=== PATIENT | female | born 1945 | race Caucasian/White ===

== ENCOUNTER 2018-05-21 07:23 | Day surgery (SDC) | payer OTHER ==
[2018-05-17 12:06] VITALS: BMI 29.0
[2018-05-21] MEDS ORDERED: BUPIVACAINE HCL/PF 0.5% (5MG/ML) 10 ML VIAL ONE (08:08)
[2018-05-21] MEDS ORDERED: PHENYLEPHRINE HCL 10 MG/1 ML SINGLE DOSE VIAL ONE (09:21)
[2018-05-21] MEDS ORDERED: LIDOCAINE HCL 2% 100 MG/5 ML DISP.SYRIN ONE (09:21)
[2018-05-21] MEDS ORDERED: ROCURONIUM BROMIDE 50 MG/5 ML VIAL ONE (09:22)
[2018-05-21] MEDS ORDERED: SUCCINYLCHOLINE CHLORIDE 200 MG/10 ML VIAL ONE (09:22)
[2018-05-21] MEDS ORDERED: PROPOFOL 20 ML ONE (09:22)
[2018-05-21] MEDS ORDERED: MIDAZOLAM HCL 2 MG/2 ML SINGLE DOSE VIAL ONE (09:22)
[2018-05-21] MEDS ORDERED: ePHEDrine SULFATE 50 MG/1 ML AMPULE ONE ×2 (09:22→09:57)
[2018-05-21] MEDS ORDERED: morphine CARPU-JECT 10 MG/1 ML DISP.SYRIN ONE (09:46)
[2018-05-21] MEDS ORDERED: PROMETHAZINE HCL 25 MG/1 ML VIAL IVPB PRN (09:54)
[2018-05-21] MEDS ORDERED: oxyCODONE HCL 5 MG TABLET PO PRN (09:54)
[2018-05-21] MEDS ORDERED: ONDANSETRON 4 MG/2 ML VIAL IVPUSH PRN (09:54)
[2018-05-21] MEDS ORDERED: LACTATED RINGERS SOLUTION 1,000 ML IV SCH (10:00)
[2018-05-21] MEDS ORDERED: BUPIVACAINE HCL/PF 0.5% (5MG/ML) 10 ML VIAL IJ ONE (10:22)
[2018-05-21] MEDS ORDERED: morphine CARPU-JECT 10 MG/1 ML DISP.SYRIN IM ONE (10:22)
[2018-05-21] MEDS ORDERED: ONDANSETRON 4 MG/2 ML VIAL ONE (10:58)
[2018-05-21] MEDS ORDERED: oxyCODONE HCL 5 MG TABLET ONE (12:01)
[2018-05-21 13:09] VITALS: BP 123/66; PULSE 72; TEMP 98
--- NOTE | 2018-05-21 20:36 | OP ---
DATE OF OPERATION: 05/21/2018 PREOPERATIVE DIAGNOSIS: Tearing of the right knee medial meniscus. 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 PROCEDURE PERFORMED: Operative arthroscopy of the right knee with partial medial and lateral meniscectomy, chondroplasty, synovectomy, and joint debridement. SURGEON: Ethan Brown MD PLASTIC EXTRUSION OPERATOR: Nick Kumari CFA ANESTHESIA: General with Alli Jeronimo MD The procedure consisted of the patient being brought in the operating room, transferred to the OR table with all bony prominences well padded. The right leg was prepared and draped in a sterile fashion. The patient was given intravenous antibiotics and copious irrigation throughout the procedure to minimize the risk of infection. A complete risk, benefit, and alternative discussion was conducted with the patient which was inclusive of but not limited to infection, bleeding, , paralysis, increased pain, need for repeat surgery. The patient asked questions, understood the procedure, and desired to proceed with surgical treatment. An appropriate timeout which was inclusive of but not limited to site of surgery, type of surgery, anesthesiologist, and surgeon. Following sterile preparation and draping of the right leg, the leg was exsanguinated with the use of an Esmarch bandage to 325 mmHg. Suprapatellar and medial and lateral joint line portals were used to introduce the arthroscope and arthroscopic instruments. The knee was examined. There was noted to be hypertrophic synovium in the suprapatellar pouch. A partial synovectomy was performed. The inferior surface of the patella had damage consistent with chondromalacia, and this was smoothed using shaver and radiofrequency wand. The medial and lateral gutters were without plica or loose bodies. Medial meniscus was found to have a tear at the posterior horn. This was resected using shaver and radiofrequency wand. There were noted to be crystalline deposits in the articular cartilage. Intercondylar region was noted to have joint debris, and a joint debridement was performed. The lateral meniscus was found to have a tear of the posterior horn. This was resected using shaver and radiofrequency wand. The cruciate ligaments were found to be intact, although there was fraying and there was debridement of the cruciate ligaments. Joint debridement was also performed. There was noted to be eburnated bone on the lateral femoral condyle and the lateral tibial plateau. The knee joint was then copiously irrigated with sterile saline irrigant. The wounds were closed with 4-0 undyed Vicryl. We applied Steri-Strips, Xeroform, 4 x 4's, a sterile Webril, [place] bandage, and knee immobilizer. Tourniquet was deflated after approximately 20 minutes of tourniquet time. There were no intraoperative complications. Sagar [id number]
--- NOTE | 2018-05-25 15:00 | PATH ---
Surgical Pathology Report Patient Name: NAYLA BRENNAN [facility]. Rec. #: [id number] /Age/Gender: 1945 (Age: 73) / F Account: [id number] Location: [facility] Taken: 05/21/2018 Received: 05/21/2018 Reported: 05/25/2018 Physicians: Ethan Brown M.D. Specimen(s) Received RIGHT KNEE SHAVINGS Clinical History Right knee torn meniscus Final Diagnosis KNEE, RIGHT, ARTHROSCOPIC SHAVINGS: FIBROSYNOVIAL TISSUE AND CARTILAGE SHOWING NODULAR DEPOSITS OF REFRACTILE CALCIFIC MATERIAL, CONSISTENT WITH CHONDROCALCINOSIS (PSEUDOGOUT). Electronically Signed Margi Sabillon M.D. Gross Description Received in formalin, labeled "right knee shavings," is a 3.3 x 3.2 x 0.3 cm. aggregate of murray-yellow soft tissue fragments. A community service representative portion is submitted in one cassette. /05/21/201805/21/2018
== END 2018-05-21 12:45 | disposition home or self-care (01) ==
LOC: FASU 07:23
PROVIDERS: ATTEND Orthopaedic Surgery
PROC: 0SBC4ZZ Excision of Right Knee Joint, Percutaneous Endoscopic Approach (ICD-10-PCS; 2018-05-21)
PROC: 0SBC4ZZ Excision of Right Knee Joint, Percutaneous Endoscopic Approach (ICD-10-PCS; principal; 2018-05-21 10:06)
DX: S83.241A Other tear of medial meniscus, current injury, right knee, initial encounter (principal); S83.281A Other tear of lateral meniscus, current injury, right knee, initial encounter; M94.261 Chondromalacia, right knee; M67.261 Synovial hypertrophy, not elsewhere classified, right lower leg; M25.861 Other specified joint disorders, right knee; X58.XXXA Exposure to other specified factors, initial encounter; Y93.9 Activity, unspecified; Y92.9 Unspecified place or not applicable
CPT/HCPCS: 88304-TC; 89060; 94760